=== PATIENT | male | born 1940 | race Caucasian/White ===

== ENCOUNTER 2016-03-28 00:24 | Inpatient (IN) | payer OTHER, MEDICARE ==
[~2016-03-28] VITALS: Ht 190.5 cm; Wt 100.1 kg
[2016-03-28] VITALS (14 sets, daily range): BP systolic 143–223; BP diastolic 62–98; PULSE 65–89; RESP 16–20; TEMP 98.3–99.3; O2SAT 95–98
[2016-03-28] MEDS ORDERED: SODIUM CHLOR 0.9% 1000 ML INJ 1,000 ML IV SCH ×2 (00:31→10:00)
[2016-03-28] MEDS ORDERED: ALPR.5 PO (00:38)
[2016-03-28] MEDS ORDERED: POTA10TA2 PO (00:38)
[2016-03-28] MEDS ORDERED: BUPR150CR PO (00:38)
[2016-03-28] MEDS ORDERED: levETIRAcetam INJ 1,000 MG in SODIUM CHLORIDE 0.9% INJ 100 ML IV ONE (00:45)
[2016-03-28] MEDS ORDERED: SODIUM CHLORIDE 0.9% FLUSH 5 ML FLUSH IVF PRN (00:45)
[2016-03-28 00:53] LABS: BASOPHIL % 0.6 % (0.0-2.0); EOSINOPHIL % 0.3 % (0.0-4.0); HEMATOCRIT 36.7 % (39.0-51.0); HEMO FLAGS DIFF FINAL; LYMPH % 18.3 % (9.0-44.0); LYMPHOCYTE # 1.6 TH/MM3 (1.0-4.8); MEAN CELL VOLUME 92.3 FL (80.0-100.0); MEAN CORPUSCULAR HEMOGLOBIN 31.6 PG (27.0-34.0); MEAN CORPUSCULAR HGB CONC 34.2 % (32.0-36.0); MONO % 12.7 % (0.0-8.0); NEUT % 68.1 % (16.0-70.0); PLATELET COUNT 156 TH/MM3 (150-450); RED BLOOD COUNT 3.97 MIL/MM3 (4.50-5.90); RED CELL DISTRIBUTION WIDTH 13.2 % (11.6-17.2); WHITE BLOOD COUNT 8.8 TH/MM3 (4.0-11.0)
[2016-03-28] MEDS ORDERED: LORazepam 2 MG/ML VIAL ONE (00:53)
[2016-03-28] MEDS ORDERED: FOSPHENYTOIN SODIUM 500 MG PE/10 ML VIAL IM ONE (01:00)
[2016-03-28] MEDS ORDERED: LORazepam 2 MG/ML VIAL IV PUSH ONE (01:00)
--- NOTE | 2016-03-28 01:02 | RADRPT ---
EXAM DATE/TIME: 03/28/2016 00:33 [facility] COMPARISON: CT BRAIN W/O CONTRAST, December 28, 2014, 23:34. INDICATIONS : Altered mental status. RADIATION DOSE: 56.35 CTDIvol (mGy) MEDICAL HISTORY : Non-responsive. SURGICAL HISTORY : Non-responsive. ENCOUNTER: Initial ACUITY: 1 day PAIN SCALE: Non-responsive LOCATION: cranial TECHNIQUE: Multiple contiguous axial images were obtained of the head. Using automated exposure control and adj ustment of the mA and/or kV according to patient size, radiation dose was kept as low as reasonably a chievable to obtain optimal diagnostic quality images. FINDINGS: CEREBRUM: The ventricles are normal for age. No evidence of midline shift, mass lesion, hemorrhage or acute in farction. No extra-axial fluid collections are seen. POSTERIOR FOSSA: The cerebellum and brainstem are intact. The 4th ventricle is midline. The cerebellopontine angle i s unremarkable. EXTRACRANIAL: There is mucoperiosteal thickening of the visualized paranasal sinuses, especially the maxillary air cells and right worse than left. SKULL: The calvaria is intact. No evidence of skull fracture. CONCLUSION: No evidence of an acute intracranial abnormality. Diffuse sinus disease, especially maxillary. Erwin Hernandez MD on March 28, 2016 at 0:59 Board Certified Radiologist. This report was verified electronically.
[2016-03-28 01:03] LABS: APTT (PATIENT) 25.1 SEC (24.3-30.1); PROTHROMBIN TIME - PATIENT 11.1 SEC (9.8-11.6)
[2016-03-28 01:06] LABS: BLOOD, URINE NEG (NEG); GLUCOSE,URINE NEG (NEG); KETONE, URINE NEG (NEG); NITRITE,URINE NEG (NEG); URINE COLOR COLORLESS (YELLW/STRAW)
[2016-03-28 01:09] LABS: COMMENT (UR) CATH-CULT NOT IND; CULTURE IF INDICATED CATH CULTURE NOT IND
[2016-03-28 01:13] LABS: AMPHETAMINE, URINE NEG (NEG); BARBITURATES, URINE NEG (NEG); COCAINE, URINE NEG (NEG)
--- NOTE | 2016-03-28 01:21 | RADRPT ---
EXAM DATE/TIME: 03/28/2016 01:05 [facility] COMPARISON: No previous studies available for comparison. INDICATIONS : Shortness of breath. MEDICAL HISTORY : Unobtainable. SURGICAL HISTORY : Unobtainable. ENCOUNTER: Initial ACUITY: 1 day PAIN SCORE: Non-responsive. LOCATION: Bilateral chest FINDINGS: A single view of the chest demonstrates the lungs to be symmetrically aerated without evidence of mas s, infiltrate or effusion. The cardiomediastinal contours are unremarkable. Osseous structures are intact. CONCLUSION: No evidence of acute cardiopulmonary disease. Erwin Hernandez MD on March 28, 2016 at 1:20 Board Certified Radiologist. This report was verified electronically.
--- NOTE | 2016-03-28 01:32 | PD ---
HPI Chief Complaint: Seizure Time Seen by Provider: 00:31 Travel History International Travel<30 days: No Contact w/Intl Traveler<30days: No Traveled to known affect area: No History of Present Illness HPI 75-year-old man, otherwise healthy, presents to the emergency department after seizure activity. He is at his girlfriend's house when she noted generalized convulsions. She states he's had a cough or cold recently. He also recently stopped his SSRI and switched to Wellbutrin a day or so ago. She denies that he has any history of previous seizures that she knows of. He is not on any seizure medicine. He otherwise had been feeling generally well and healthy. EMS reports they were postictal on arrival. She started seizing multiple times in route and was given 2 mg of Ativan. History Past Medical History Narrative Medical Hypertension Social History Alcohol Use: Yes (6-10 beers daily) Tobacco Use: No Allergies-Medications (Allergen,Severity, Reaction): Coded Allergies: No Known Allergies (Unverified , 03/28/16) Reported Meds & Prescriptions Reported Meds & Active Scripts Active Reported Xanax (Alprazolam) 0.5 Mg Tab 0.5 Mg PO Q6H PRN Wellbutrin SR 12 HR (Bupropion HCl) 150 Mg Tab 150 Mg PO Q12HR Potassium Chloride ER (Potassium Chloride) 10 Meq Tab 10 Meq PO DAILY Review of Systems Except as stated in HPI: all other systems reviewed are Neg Physical Exam Narrative GENERAL: 75-year-old man, left-sided gaze preference, poorly responsive. SKIN: Warm and dry. HEAD: Atraumatic. Normocephalic. EYES: Left-sided eye deviation. Pupils about 2-3 mm. ENT: No nasal bleeding or discharge. Mucous membranes pink and moist. NECK: Trachea midline. No JVD. CARDIOVASCULAR: Regular rate and rhythm. No murmur appreciated. RESPIRATORY: No accessory muscle use. Clear to auscultation. Breath sounds equal bilaterally. GASTROINTESTINAL: Abdomen soft, non-tender, nondistended. Hepatic and splenic margins not palpable. MUSCULOSKELETAL: No obvious deformities. No edema. NEUROLOGICAL: Decreased alertness. Left-sided gaze preference. Minimal withdrawal in all 4 extremities. No other lateralizing symptoms. Data Data Last Documented VS Vital Signs Date Time Temp Pulse Resp B/P Pulse Ox O2 Delivery O2 Flow Rate FiO2 03/28/16 00:57 99.3 88 18 163/68 95 Nasal Cannula 3 Orders Electrocardiogram (03/28/16:31) Complete Blood Count With Diff (03/28/16 00:31) Comprehensive Metabolic Panel (03/28/16:31) Prothrombin Time / Inr (Pt) (03/28/16:31) Act Partial Throm Time (Ptt) (03/28/16:31) Troponin I (03/28/16:31) Lactic Acid Sepsis Protocol (03/28/16:31) Urinalysis - C+S If Indicated (03/28/16:31) Blood Culture (03/28/16:31) Chest, Single Ap (03/28/16:31) Ct Brain W/O Iv Contrast(Rout) (03/28/16 00:31) Blood Glucose (03/28/16:31) Ecg Monitoring (03/28/16:31) Iv Access Insert/Monitor (03/28/16:31) Oximetry (03/28/16:31) Sodium Chloride 0.9% Flush (Ns Flush) (03/28/16 00:45) Sodium Chlor 0.9% 1000 Ml Inj (Ns 1000 M (03/28/16 00:31) Drug Screen, Random Urine (03/28/16 00:31) Alcohol (Ethanol) (03/28/16 00:31) Arterial Blood Gas (Abg) (03/28/16 ) Levetiracetam Inj (Keppra Inj) (03/28/16 00:45) Lorazepam Inj (Ativan Inj) (03/28/16 01:00) Eeg Study (03/28/16 ) Lorazepam Inj (Ativan Inj) (03/28/16 00:53) Fosphenytoin Inj (Cerebyx Inj) (03/28/16 02:00) Magnesium (Mg) (03/28/16 01:56) Potassium Chlor 20 Meq Premix (Kcl 20 Me (03/28/16 02:00) Ondansetron Inj (Zofran Inj) (03/28/16 02:30) Urinary Catheter Insert/Apply (03/28/16 02:18) Labs Laboratory Tests Test 03/28/16 03/28/16 03/28/16 00:30 00:50 02:00 White Blood Count 8.8 TH/MM3 Red Blood Count 3.97 MIL/MM3 Hemoglobin 12.5 GM/DL Hematocrit 36.7 % Mean Corpuscular Volume 92.3 FL Mean Corpuscular Hemoglobin 31.6 PG Mean Corpuscular Hemoglobin 34.2 % Concent Red Cell Distribution Width 13.2 % Platelet Count 156 TH/MM3 Mean Platelet Volume 9.1 FL Neutrophils (%) (Auto) 68.1 % Lymphocytes (%) (Auto) 18.3 % Monocytes (%) (Auto) 12.7 % Eosinophils (%) (Auto) 0.3 % Basophils (%) (Auto) 0.6 % Neutrophils # (Auto) 6.0 TH/MM3 Lymphocytes # (Auto) 1.6 TH/MM3 Monocytes # (Auto) 1.1 TH/MM3 Eosinophils # (Auto) 0.0 TH/MM3 Basophils # (Auto) 0.0 TH/MM3 CBC Comment DIFF FINAL Differential Comment Prothrombin Time 11.1 SEC Prothromb Time International 1.0 RATIO Ratio Activated Partial 25.1 SEC Thromboplast Time Sodium Level 143 MEQ/L Potassium Level 2.6 MEQ/L Chloride Level 108 MEQ/L Carbon Dioxide Level 27.1 MEQ/L Anion Gap 8 MEQ/L Blood Urea Nitrogen 16 MG/DL Creatinine 1.13 MG/DL Estimat Glomerular Filtration 63 ML/MIN Rate Random Glucose 110 MG/DL Lactic Acid Level 2.1 mmol/L Calcium Level 8.4 MG/DL Total Bilirubin 0.7 MG/DL Aspartate Amino Transf 14 U/L (AST/SGOT) Alanine Aminotransferase 18 U/L (ALT/SGPT) Alkaline Phosphatase 74 U/L Troponin I LESS THAN 0.02 NG/ML Total Protein 6.3 GM/DL Albumin 3.5 GM/DL Ethyl Alcohol Level LESS THAN 3 MG/DL Urine Color COLORLESS Urine Turbidity CLEAR Urine pH 7.0 Urine Specific [place] 1.006 Urine Protein NEG mg/dL Urine Glucose (UA) NEG mg/dL Urine Ketones NEG mg/dL Urine Occult Blood NEG Urine Nitrite NEG Urine Bilirubin NEG Urine Urobilinogen LESS THAN 2.0 MG/DL Urine Leukocyte Esterase NEG Urine RBC LESS THAN 1 /hpf Urine WBC LESS THAN 1 /hpf Microscopic Urinalysis Comment CATH-CULT NOT IND Urine Opiates Screen NEG Urine Barbiturates Screen NEG Urine Amphetamines Screen NEG Urine Benzodiazepines Screen NEG Urine Cocaine Screen NEG Urine Cannabinoids Screen NEG Blood Gas Puncture Site RT RADIAL Blood Gas Patient Temperature 98.6 Blood Gas HCO3 26 mmol/L Blood Gas Base Excess 2.1 mmol/L Blood Gas Oxygen Saturation 92 % Arterial Blood pH 7.43 Arterial Blood Partial 39 mmHg Pressure CO2 Arterial Blood Partial 76 mmHG Pressure O2 Arterial Blood Oxygen Content 16.5 Vol % Arterial Blood 2.0 % Carboxyhemoglobin Arterial Blood Methemoglobin 1.9 % Blood Gas Hemoglobin 12.8 G/DL Oxygen Delivery Device NASAL CANNULA Blood Gas Liter Flow 2 L/M MDM Medical Decision Making Medical Screen Exam Complete: Yes Emergency Medical Condition: Yes Interpretation(s) LABS: CBC remarkable for mild anemia. CMP potassium 2.6 Lactate. 2.1 Troponin negative Coags unremarkable UA unremarkable Urine drug screen negative Alcohol Negative Head CT: No evidence of acute intracranial abnormality. Diffuse sinus disease especially maxillary. Chest x-ray: No evidence of acute cardiopulmonary disease. Differential Diagnosis Seizure, stroke, bleed, infection, adverse effect of prescription drugs, other Narrative Course Medical decision making 75 year-old man of multiple seizures started over past couple hours. Some URI symptoms leading into this. It also did start Wellbutrin and stop his SSRI. Possibly multifactorial. On arrival was still with leftward gaze deviation and concern for ongoing nonconvulsive seizures. This didn't resolve with 2 more of Ativan and IV Keppra load. I spoke with Dr. Lr, recommends fosphenytoin. Symptoms did resolve, patient remained sedated but without evidence of ongoing seizure activity. He'll be admitted to the ICU. CT head without evidence of bleed. Critical Care Narrative Aggregate critical care time was 35 minutes minutes. Time to perform other separately billable procedures was not included in the critical care time. My time did not include minutes spent treating any other patients simultaneously or on activities that did not directly contribute to the patient's treatment. The services I provided to this patient were to treat and/or prevent clinically significant deterioration that could result in: , disability, unrecognized infection, unrecognized stroke. I provided critical care services requiring my management, as noted below: Chart data review, documentation time, medication orders and management, vital sign assessments/reviewing monitor data, ordering and reviewing lab tests, ordering and interpreting/reviewing x-rays and diagnostic studies, care of the patient and discussion of the patient with the admitting physicians. Diagnosis Primary Impression: Status epilepticus Admitting Information Admitting Physician Requests: Admit Mina Velasquez MD Mar 28, 2016 01:32
[2016-03-28 01:46] LABS: ALKALINE PHOSPHATASE 74 U/L (45-117); ALT (GPT) 18 U/L (12-78); ANION GAP 8 MEQ/L (5-15); AST (GOT) 14 U/L (15-37); BICARBONATE 27.1 MEQ/L (21.0-32.0); BLOOD UREA NITROGEN 16 MG/DL (7-18); CHLORIDE 108 MEQ/L (98-107); GLOMERULAR FILTRATION RATE 63 ML/MIN (>89); SODIUM (NA) 143 MEQ/L (136-145); TOTAL BILIRUBIN ADULT 0.7 MG/DL (0.2-1.0)
[2016-03-28 01:49] LABS: POTASSIUM 2.6 MEQ/L (3.5-5.1)
[2016-03-28] MEDS ORDERED: FOSPHENYTOIN INJ 1,500 MGPE in SODIUM CHLORIDE 0.9% INJ 100 ML IV ONE (02:00)
[2016-03-28 02:09] LABS: BLOOD GAS BASE EXCESS 2.1 mmol/L (-2-2); BLOOD GAS HCO3 26 mmol/L (22-26); BLOOD GAS METHEMOGLOBIN 1.9 % (0-2); BLOOD GAS O2 HGB SATURATION 92 % (90-100); BLOOD GAS OXYGEN CONTENT 16.5 Vol % (12.0-20.0); BLOOD GAS PCO2 39 mmHg (38-42); BLOOD GAS PO2 76 mmHG (61-120); BLOOD GAS TOTAL HGB 12.8 G/DL (12.0-16.0); TEMP CORR TO 98.6
[2016-03-28 02:10] LABS: CRITICAL VALUE NO; DRAW SITE RT RADIAL; LITER FLOW 2 L/M; NUMBER OF ARTERIAL PUNCTURES 2; OXYGEN DEVICE NASAL CANNULA; STAT YES; ULNAR PULSE PRESENT
[2016-03-28] MEDS: POTASSIUM CHLOR 20 MEQ PREMIX 100 ML IV SCH ×2 (02:26→04:35)
[2016-03-28] MEDS ORDERED: ONDANSETRON HCL 4 MG/2 ML VIAL IV ONE (02:30)
[2016-03-28 02:46] LABS: LACTIC ACID GHOST NOT REPORTABLE
[2016-03-28] MEDS ORDERED: CHLORHEXIDINE GLUCONATE 2 % 1 PACK (2 CLOTHS) TOP PRN (04:15)
[2016-03-28] MEDS ORDERED: POTASSIUM CHLOR 40 MEQ PREMIX 100 ML IV ONE (04:15)
[2016-03-28] MEDS ORDERED: MISCELLANEOUS NURSING INFORMATION XX SCH (04:15)
[2016-03-28] MEDS ORDERED: ACETAMINOPHEN 325 MG TAB PO PRN (04:15)
[2016-03-28] MEDS ORDERED: RESP: ALBUTEROL 2.5 MG/IPRATROPIUM 0.5 MG NEB (PRN) INH (04:15)
[2016-03-28] MEDS ORDERED: BISACODYL EC 5 MG TABEC PO PRN (04:15)
[2016-03-28] MEDS ORDERED: SODIUM CHLORIDE 0.9% FLUSH 5 ML FLUSH IV FLUSH PRN (04:15)
[2016-03-28] MEDS ORDERED: ONDANSETRON HCL 4 MG/2 ML VIAL IV PRN (04:15)
[2016-03-28] MEDS ORDERED: MAGNESIUM SULFATE INJ 4 GM in SODIUM CHLORIDE 0.9% INJ 92 ML IV PRN (04:30)
[2016-03-28] MEDS ORDERED: POTASSIUM PHOSPHATE INJ 30 MMOL in SODIUM CHLOR 0.9% 250 ML INJ 250 ML IV PRN (04:30)
[2016-03-28] MEDS ORDERED: POTASSIUM CHLOR 40 MEQ PREMIX 100 ML IV PRN ×2 (04:30)
[2016-03-28] MEDS ORDERED: MAGNESIUM SULFATE INJ 2 GM in SODIUM CHLORIDE 0.9% INJ 96 ML IV PRN (04:30)
[2016-03-28] MEDS ORDERED: POTASSIUM CHLOR 20 MEQ PREMIX 100 ML IV PRN ×2 (04:30)
[2016-03-28] MEDS ORDERED: POTASSIUM CL 40 MEQ/30 ML LIQ UDC PO/TUBE PRN ×2 (04:30)
[2016-03-28] MEDS ORDERED: POTASSIUM PHOSPHATE MONOBASIC 500 MG TAB PO PRN (04:30)
[2016-03-28] MEDS ORDERED: SODIUM PHOSPHATE INJ 30 MMOL in SODIUM CHLOR 0.9% 250 ML INJ 240 ML IV PRN (04:30)
[2016-03-28] MEDS ORDERED: MAGNESIUM OXIDE 400 MG TAB PO PRN (04:30)
[2016-03-28] MEDS ORDERED: POTASSIUM PHOSPHATE MONOBASIC 500 MG TAB PO/TUBE PRN (04:30)
[2016-03-28] MEDS: NS + KCL 20 MEQ INJ 1,000 ML IV SCH ×2 (04:53→22:42)
--- NOTE | 2016-03-28 05:29 | HHI.HP ---
HPI Service Critical Care Medicine Primary Care Physician Unknown Admission Diagnosis status epilepticus Diagnosis: Chief Complaint: Seizures Travel History International Travel<30 Days: No Contact w/Intl Traveler <30 Da: No Traveled to Known Affected Are: No History of Present Illness HPI 75-year-old man, otherwise healthy, presents to the emergency department after seizure activity. He was at his girlfriend's house when she noted generalized convulsions. She states he's had a cough or cold recently. He also recently stopped his SSRI and switched to Wellbutrin a day or so ago. She denies that he has any history of previous seizures that she knows of. He is not on any seizure medicine. He otherwise had been feeling generally well and healthy. EMS reports they were postictal on arrival. He started seizing multiple times in route and was given 2 mg of Ativan. Patient received 2 mg of Ativan in the field and subsequently had further seizures in the ER for which he received 2 mg Ativan IV and was loaded with Keppra 1 g and fosphenytoin [address] after discussion with Dr. Lr from neurology. Patient was drowsy/post ictal in the ER. He was accepted for admission by critical care medicine service. When I evaluated the patient he was drowsy though arousable. He knew his name and was following commands. He could not give me any details of his history which was obtained by discussion with patient's girlfriend. History (Limited) History Past Medical History Narrative Medical Hypertension Social History Alcohol Use: Yes (6-10 beers daily) Tobacco Use: No Allergies-Medications Allergies-Medications (Allergen,Severity, Reaction): Coded Allergies: No Known Allergies (Unverified , 03/28/16) Reported Meds & Prescriptions Reported Meds & Active Scripts Active Reported Xanax (Alprazolam) 0.5 Mg Tab 0.5 Mg PO Q6H PRN Wellbutrin SR 12 HR (Bupropion HCl) 150 Mg Tab 150 Mg PO Q12HR Potassium Chloride ER (Potassium Chloride) 10 Meq Tab 10 Meq PO DAILY ROS Review of Systems Difficult to be obtained in view of drowsiness/post ictal state following seizures Physical Exam Vital Signs Vital Signs Date Time Temp Pulse Resp B/P Pulse Ox O2 Delivery O2 Flow Rate FiO2 03/28/16 03:00 98.9 76 16 158/72 98 Nasal Cannula 2 03/28/16 02:30 72 16 143/65 98 Nasal Cannula 2 03/28/16 02:00 74 16 200/98 97 Nasal Cannula 2 03/28/16 01:30 80 16 193/93 98 Nasal Cannula 2 03/28/16 00:57 99.3 88 18 163/68 95 Nasal Cannula 3 03/28/16 00:39 97 Nasal Cannula 2 03/28/16 00:29 99.1 89 16 223/93 97 Physical Exam GENERAL: 75-year-old man, drowsy, poorly responsive, mumbles responses on questioning. Laying in bed in no acute distress SKIN: Warm and dry. HEAD: Atraumatic. Normocephalic. EYES: PERRLA, Pupils about 2-3 mm. ENT: No nasal bleeding or discharge. Mucous membranes pink and moist. NECK: Trachea midline. No JVD. CARDIOVASCULAR: Regular rate and rhythm. No murmur appreciated. RESPIRATORY: No accessory muscle use. Clear to auscultation. Breath sounds equal bilaterally. GASTROINTESTINAL: Abdomen soft, non-tender, nondistended. Hepatic and splenic margins not palpable. MUSCULOSKELETAL: No obvious deformities. No edema. NEUROLOGICAL: Drowsy, arousable, mumbles responses. Knows his name, shows me 2 fingers with his right hand on command. Moving both upper extremities. Localizes with bilateral lower extremities. Plantars equivocal. Laboratory Laboratory Tests Test 03/28/16 03/28/16 03/28/16 03/28/16 00:30 00:50 02:00 03:10 White Blood Count 8.8 Red Blood Count 3.97 Hemoglobin 12.5 Hematocrit 36.7 Mean Corpuscular Volume 92.3 Mean Corpuscular Hemoglobin 31.6 Mean Corpuscular Hemoglobin 34.2 Concent Red Cell Distribution Width 13.2 Platelet Count 156 Mean Platelet Volume 9.1 Neutrophils (%) (Auto) 68.1 Lymphocytes (%) (Auto) 18.3 Monocytes (%) (Auto) 12.7 Eosinophils (%) (Auto) 0.3 Basophils (%) (Auto) 0.6 Neutrophils # (Auto) 6.0 Lymphocytes # (Auto) 1.6 Monocytes # (Auto) 1.1 Eosinophils # (Auto) 0.0 Basophils # (Auto) 0.0 CBC Comment DIFF FINAL Differential Comment Prothrombin Time 11.1 Prothromb Time International 1.0 Ratio Activated Partial 25.1 Thromboplast Time Sodium Level 143 Potassium Level 2.6 Chloride Level 108 Carbon Dioxide Level 27.1 Anion Gap 8 Blood Urea Nitrogen 16 Creatinine 1.13 Estimat Glomerular Filtration 63 Rate Random Glucose 110 Lactic Acid Level 2.1 1.2 Calcium Level 8.4 Magnesium Level 1.7 Total Bilirubin 0.7 Aspartate Amino Transf 14 (AST/SGOT) Alanine Aminotransferase 18 (ALT/SGPT) Alkaline Phosphatase 74 Troponin I LESS THAN 0.02 Total Protein 6.3 Albumin 3.5 Ethyl Alcohol Level LESS THAN 3 Urine Color COLORLESS Urine Turbidity CLEAR Urine pH 7.0 Urine Specific [place] 1.006 Urine Protein NEG Urine Glucose (UA) NEG Urine Ketones NEG Urine Occult Blood NEG Urine Nitrite NEG Urine Bilirubin NEG Urine Urobilinogen LESS THAN 2.0 Urine Leukocyte Esterase NEG Urine RBC LESS THAN 1 Urine WBC LESS THAN 1 Microscopic Urinalysis Comment CATH-CULT NOT IND Urine Opiates Screen NEG Urine Barbiturates Screen NEG Urine Amphetamines Screen NEG Urine Benzodiazepines Screen NEG Urine Cocaine Screen NEG Urine Cannabinoids Screen NEG Blood Gas Puncture Site RT RADIAL Blood Gas Patient Temperature 98.6 Blood Gas HCO3 26 Blood Gas Base Excess 2.1 Blood Gas Oxygen Saturation 92 Arterial Blood pH 7.43 Arterial Blood Partial 39 Pressure CO2 Arterial Blood Partial 76 Pressure O2 Arterial Blood Oxygen Content 16.5 Arterial Blood 2.0 Carboxyhemoglobin Arterial Blood Methemoglobin 1.9 Blood Gas Hemoglobin 12.8 Oxygen Delivery Device NASAL CANNULA Blood Gas Liter Flow 2 Date/Time Procedure Status Source Growth 03/28/16 00:38 Aerobic Blood Culture Received Blood Peripheral Pending 03/28/16 00:38 Anaerobic Blood Culture Received Blood Peripheral Pending Result Diagram: 03/28/160 03/28/1629 Imaging Last Impressions Head CT 03/28/1630 Signed Impressions: Service Date/Time: Monday, March 28, 2016 00:33 - CONCLUSION: No evidence of an acute intracranial abnormality. Diffuse sinus disease, especially maxillary. Erwin Hernandez MD Chest X-Ray 03/28/1630 Signed Impressions: Service Date/Time: Monday, March 28, 2016 01:05 - CONCLUSION: No evidence of acute cardiopulmonary disease. Erwin Hernandez MD Assessment and Plan Assessment and Plan 75-year-old male with: New onset seizures Encephalopathy History of depression Recent diarrhea/respiratory tract infection Hypokalemia Sinusitis by CT Plan: Neuro: Continue Keppra/Dilantin for seizures. Ativan when necessary as needed. Neurology consult requested by ER physician. Dr. Lr was informed by ER and discussed the case with Dr. Blanco. Obtain EEG. Further neuro workup per Dr. Lr. Cardiovascular: IV hydration, watch for hypotension. Pulmonary: Supplemental O2 as needed. Bronchodilators when necessary. Currently protecting airway. GI/liver: Nothing by mouth for now until improvement in neuro status. Renal/: IV hydration, strict intake output, monitor and replete electrolytes, follow BUN/creatinine. Potassium being repleted. Electrolyte replacement protocol ID: No antibiotics at this time. Endocrine: Watch for hyperglycemia, SSI for glycemic control if needed. Heme: Follow CBC Prophylaxis: SCDs/Lovenox If patient has further seizures may require intubation. Cholo Jett MD Mar 28, 2016 05:29
[2016-03-28] MEDS ORDERED: PHENYTOIN INJ 100 MG/2 ML VIAL IV SCH (06:00)
[2016-03-28] MEDS: SODIUM CHLORIDE 0.9% FLUSH 5 ML FLUSH IV FLUSH SCH ×2 (09:00→20:52)
[2016-03-28] MEDS ORDERED: ASPIRIN EC 81 MG TABEC PO SCH (09:45)
[2016-03-28] MEDS: levETIRAcetam INJ 500 MG in SODIUM CHLORIDE 0.9% INJ 100 ML IV SCH ×2 (09:46→20:52)
--- NOTE | 2016-03-28 11:55 | MB ---
cc: JORGENSENSAQIB DATE OF CONSULTATION: 03/28/2016 HISTORY OF PRESENT ILLNESS A 75-year-old right-handed man with a history of hypertension, he fell or passed out about six months ago, he tells me he hit his head on a car. In fact December 28 he was seen here in the ER when he fell from a standing position on his garage floor, he had had a few drinks, evidently he drinks about six beers a day. He had some fecal incontinence on the way to the ER however has a history of that evidently. His urine drug screen was negative. His alcohol level was 114. They wanted to admit him for syncope but he did not want to be admitted. His potassium was 3.3. CT of the cervical spine [id number] stenosis at C3-4. CT of the brain normal. Nevertheless, he was admitted last evening with status epilepticus. He was at his girlfriend's house when she noticed generalized convulsions. He had a cough recently and recently switched to Wellbutrin about two days ago. He had multiple seizures in route and was given Ativan. I was called from the ER, he had some eye deviation left side but was moving all four extremities. We loaded him with Dilantin. MEDICATIONS AT HOME 1. Xanax 0.5 q.6 hours p.r.n. 2. Wellbutrin 150 q.12. 3. Potassium. REVIEW OF SYSTEMS He denied any diabetes, hypercholesterolemia, DE, CABG, heart problems, renal, hepatic or pulmonary disease, thyroid disease, lupus, ulcer, cancer, known seizure or strokes. There was no odd smells, taste or nivia vu. He has not woken up wet the bed or bit his tongue. SOCIAL HISTORY He is not a smoker but has six beers a day. FAMILY HISTORY Positive brain tumor in his mother. Negative for seizure or stroke. CURRENT MEDICATIONS He gets some IV Keppra and IV Dilantin, 4 mg of Ativan last evening in the ER and evidently more than that from the traffic clerk. PHYSICAL EXAMINATION VITAL SIGNS: Afebrile, 77, 20, he has been in sinus rhythm overnight, 200/98-156/62. NECK: There were no carotid bruits. HEART: Regular rhythm. I did not detect a murmur. NEUROLOGIC: Pupils are equal. Visual mondragon are full. Extraocular movements intact without nystagmus. Face symmetric with normal sensation. Tongue was midline. There is no drift. He had normal strength in upper and lower extremities bilaterally. Toes are downgoing bilaterally. Pinprick is intact throughout. He is a bit sleepy but awakens. He knows the year, gives a good history, follows commands well. Speech is fluent. He is not aphasic. LABORATORY DATA CBC was normal. Urine drug screen was negative. Alcohol level was less than 3. UA was normal. Basic metabolic profile: Potassium was 2.6, otherwise normal. Sodium was normal. LFTs normal. Troponin and albumin normal. ABG was normal. IMAGING STUDIES He had a chest x-ray that was negative. He had a CAT scan of his brain was read as normal. IMPRESSION AND RECOMMENDATION New-onset seizure. Unclear if he could have had one back in 2014 or not. Certainly the Wellbutrin can lower the seizure threshold and we will stop that. For now we will keep him on the Keppra and I will stop the Dilantin. We will check an EEG and an MRI of the brain today. Carotid ultrasound will also be performed. We can discontinue his Rojas. If he is seizure free later today, he could be transferred to a tele bed. I did review his CT, there appears to be some white matter changes. Hypertensive encephalopathy could also be considered with the seizure. We will get his blood pressure down to 120/70. We will give him a Baby Aspirin for now. MD ZULEYMA Hardwick/TG /9:08 AM /11:26 AM
[2016-03-28 11:58] LABS: FREE T4 1.06 NG/DL (0.76-1.46)
--- NOTE | 2016-03-28 13:09 | EKG ---
Date Performed: 03/28/2016 Time Performed: 00:59:00 PTAGE: 75 years EKG: Sinus rhythm WITH OCCASIONAL SUPRAVENTRICULAR PREMATURE COMPLEXES BORDERLINE ECG Compared to prior tracing no sig nificant change PREVIOUS TRACING 12/29/2014 @.12.38 DOCTOR: Robert Singh Interpretating Date/Time 03/28/2016 13:09:02
[2016-03-28] MEDS ORDERED: LORazepam 2 MG/ML VIAL IV ONE (15:30)
--- NOTE | 2016-03-28 16:06 | RADRPT ---
EXAM DATE/TIME: 03/28/2016 14:35 [facility] COMPARISON: No previous studies available for comparison. INDICATIONS : Cerebrovascular accident. MEDICAL HISTORY : Hypertension. SURGICAL HISTORY : Prostatectomy. ENCOUNTER: Initial ACUITY: 1 day PAIN SCORE: 0/10 LOCATION: Bilateral neck PEAK SYSTOLIC VELOCITIES (cm/sec): ICA/CCA RATIO: Right: 1.0 Left: 1.1 ICA: Right: 115 Left: 100 CCA: Right: 117 Left: 88 ECA: Right: 91 Left: 128 VERTEBRAL: Right: 62 antegrade Left: 60 antegrade Elevated flow velocities and ICA/CCA ratios have been found to correlate with increased degrees of vessel stenosis, calculated as percentage of diameter relative to a normal segment of distal ICA/CCA FINDINGS: RIGHT CAROTID: No significant stenosis is visualized. The waveforms are within normal limits. LEFT CAROTID: No significant stenosis is visualized. The waveforms are within normal limits. VERTEBRAL ARTERIES: Antegrade flow is seen in both vertebral arteries. MISCELLANEOUS: None. CONCLUSION: 1. Mild plaque predominantly around the carotid bifurcations but no hemodynamically significant steno sis. Vertebral artery flow antegrade. Bebeto Nowak MD on March 28, 2016 at 16:04 Board Certified Radiologist. This report was verified electronically.
[2016-03-28] MEDS ORDERED: GADODIAMIDE PF 287 MG/ML 20 ML VIAL (for RAD MRI) IV ONE (16:10)
--- NOTE | 2016-03-28 17:04 | RADRPT ---
EXAM DATE/TIME: 03/28/2016 15:59 [place] COMPARISON: No previous studies available for comparison. INDICATIONS : Seizures. CONTRAST: 20 cc Omniscan (gadodiamide) IV MEDICAL HISTORY : Hypertension. Carcinoma, prostate. SURGICAL HISTORY : Prostatectomy. Fusion, lumbar. ENCOUNTER: Initial ACUITY: 2 day PAIN SCORE: 0/10 LOCATION: cranial TECHNIQUE: Multiplanar, multisequence MRI of the brain was performed both prior to and following the administrat ion of paramagnetic contrast. FINDINGS: CEREBRUM: The ventricles are normal for age. No evidence of midline shift, mass lesion, hemorrhage or acute in farction. No extraaxial fluid collections are seen. The pituitary gland and suprasellar cistern are normal in configuration. WHITE MATTER: Mild signal abnormalities are seen in the white matter. POSTERIOR FOSSA: The cerebellum and brainstem are intact. The 4th ventricle is midline. The cerebellopontine angle is unremarkable. The cerebellar tonsils are normal in position. DIFFUSION IMAGING: No focal areas of restricted diffusion are seen. No evidence of acute infarction. EXTRACRANIAL: The visualized portions of the orbits unremarkable. There is extensive mucosal thickening in the para nasal sinuses, especially right maxillary. POST-CONTRAST: No abnormal areas of parenchymal or dural enhancement. No evidence of blood-brain barrier breakdown. CONCLUSION: 1. No acute findings. No recent infarct. Mild white matter ischemic changes. Mucosal thickening in th e paranasal sinuses. Bebeto Nowak MD on March 28, 2016 at 16:59 Board Certified Radiologist. This report was verified electronically.
[2016-03-28] MEDS ORDERED: ENOXAPARIN SODIUM 40 MG/0.4 ML SYRINGE SQ SCH (20:00)
--- NOTE | 2016-03-28 20:45 | MG ---
cc: SAQIB JORGENSEN Lab No: [id number] Date: Age: 75 Sex: M Race: 75-year-old man with multiple seizures. Hyperventilation not performed. Wellbutrin, Dilantin, Keppra. DESCRIPTION OF THE RECORDING: Diffuse beta rhythms are noted. Some sleep spindles are seen. The recording overall is synchronous and symmetric. No epileptiform or seizure activity is noted. There are no hemisphere asymmetries. Photic stimulation was performed without significant posterior driving. IMPRESSION: A normal awake and sleep EEG. No evidence for focal or diffuse abnormality. MD ZULEYMA Hardwick/MARY /8:17 PM /8:40 PM
[2016-03-29] VITALS: BP 189/91; PULSE 63; RESP 28; TEMP 98; O2SAT 100
[2016-03-29] MEDS ORDERED: LEVE500 PO (03:59)
[2016-03-29] MEDS ORDERED: CHLORHEXIDINE GLUCONATE 2 % 1 PACK (2 CLOTHS) TOP SCH (04:00)
[2016-03-30 14:40] LABS: ANA SCREEN NEG (NEG); RAPID PLASMA REAGIN SCREEN NON-REACTIVE (NON-REACTVE)
== END 2016-03-29 05:07 | disposition left against medical advice (07) | DRG 100 ==
LOC: NEPE 00:24 → NEDA 02:50 → HIME 05:30
PROVIDERS: ADMIT Internal Medicine Critical Care Medicine; ATTEND Internal Medicine Critical Care Medicine
DX: G40.901 Epilepsy, unspecified, not intractable, with status epilepticus (principal); G93.40 Encephalopathy, unspecified; I10 Essential (primary) hypertension; E87.6 Hypokalemia; H51.8 Other specified disorders of binocular movement; M48.02 Spinal stenosis, cervical region
CPT/HCPCS: 36600; 51702; 70450; 70553; 71010; 80053; 80307; 80320; 81001; 82607; 82805; 83605; 83735; 84425; 84439; 84443; 84484; 85025; 85610; 85652; 85730; 86038; 86592; 87040; 87641; 93005; 93880; 95819; 96365; 96367; 96375; A9579; J1165; J1650; J1953; J2060; J2405; J3480; J7030; Q2009